=== PATIENT | female | born 1965 | race Caucasian/White ===

== ENCOUNTER 2023-09-10 05:23 | Emergency (ER) | payer MEDICAID, OTHER ==
[~2023-09-10] VITALS: Ht 144.8 cm; Wt 76.4 kg
[2023-09-10] MEDS ORDERED: ACETAMINOPHEN 500 MG TAB PO ONE (11:30)
[2023-09-10 12:06] LABS: BASO % 0.3 % (0.0-1.0); EOS # 0.1 10^3/uL (0.0-0.5); HEMATOCRIT 38.4 % (36.0-47.0); HEMOGLOBIN 12.8 g/dl (12.0-15.5); LYMPH # 3.1 10^3/uL (1.5-5.0); LYMPH % 44.2 % (24.0-44.0); MEAN CORPUSCULAR HGB CONC 33.3 g/dl (32.0-36.5); MEAN CORPUSCULAR VOLUME 89.9 fl (80.0-96.0); MONO # 0.5 10^3/uL (0.0-0.8); MONO % 6.8 % (2.0-8.0); NEUTROPHILS # 3.3 10^3/uL (1.5-8.5); NEUTROPHILS % 47.4 % (36.0-66.0); PLATELET COUNT, AUTOMATED 204 10^3/uL (150-450); RED BLOOD COUNT 4.27 10^6/uL (4.00-5.40)
[2023-09-10 12:34] LABS: LIPASE 35 U/L (12-53)
[2023-09-10 12:37] LABS: ALBUMIN 4.1 G/DL (3.2-5.2); ALKALINE PHOSPHATASE 95 U/L (46-116); ALT/SGPT 22 U/L (7.0-40); AST/SGOT 16 U/L (<34); BILIRUBIN,DIRECT 0.1 MG/DL (<0.4); BILIRUBIN,TOTAL 0.5 MG/DL (0.3-1.2); BLOOD UREA NITROGEN 10 MG/DL (9-23); CALCIUM LEVEL 9.8 MG/DL (8.5-10.1); CARBON DIOXIDE LEVEL 32 MMOL/L (20-31); CHLORIDE LEVEL 109 MMOL/L (98-107); CREATININE FOR GFR 0.52 MG/DL (0.55-1.30); GLOMERULAR FILTRATION RATE > 60.0 (>51); GLUCOSE, FASTING 95 MG/DL (60-100); POTASSIUM SERUM 3.4 MMOL/L (3.5-5.1); SODIUM LEVEL 144 MMOL/L (136-145); TOTAL PROTEIN 7.3 G/DL (5.7-8.2)
[2023-09-10] MEDS ORDERED: TRAM50TA2 PO (13:00)
[2023-09-10 13:12] VITALS: BP 149/90; TEMP 97.5; O2SAT 97
== END 2023-09-10 13:14 | disposition home or self-care (01) ==
LOC: M ED 11:08
DX: R20.2 Paresthesia of skin (principal); Z87.81 Personal history of (healed) traumatic fracture; Z88.1 Allergy status to other antibiotic agents; Z88.8 Allergy status to other drugs, medicaments and biological substances; Z91.018 Allergy to other foods

== ENCOUNTER → 2023-09-30 | Outpatient (CLI) | payer OTHER ==
[~2023-09-30] MED LIST: TRAM50TA2 PO
== END ==
LOC: M WHC 12:43
PROVIDERS: ATTEND Specialist
DX: R92.8 Other abnormal and inconclusive findings on diagnostic imaging of breast (principal)

== ENCOUNTER 2023-12-03 11:48 | Emergency (ER) | payer OTHER ==
[~2023-12-03] VITALS: Ht 144.8 cm; Wt 75.5 kg
[2023-12-03] MEDS ORDERED: HYDR-3363 (11:55)
[2023-12-03] MEDS ORDERED: TRAZ-252 (11:55)
[2023-12-03] MEDS ORDERED: METH-1164 (11:55)
[2023-12-03] MEDS ORDERED: ZOLO100T (11:55)
[2023-12-03] MEDS ORDERED: PHEN-239 (11:55)
[2023-12-03] MEDS ORDERED: ROSU10TA6 (11:55)
[2023-12-03 13:38] LABS: BASO % 0.4 % (0.0-1.0); EOS % 0.4 % (0.0-3.0); HEMATOCRIT 39.8 % (36.0-47.0); HEMOGLOBIN 13.3 g/dl (12.0-15.5); LYMPH # 2.6 10^3/uL (1.5-5.0); LYMPH % 36.8 % (24.0-44.0); MEAN CORPUSCULAR HEMOGLOBIN 30.6 pg (27.0-33.0); MEAN CORPUSCULAR HGB CONC 33.4 g/dl (32.0-36.5); MEAN CORPUSCULAR VOLUME 91.5 fl (80.0-96.0); MONO # 0.4 10^3/uL (0.0-0.8); MONO % 5.8 % (2.0-8.0); NEUTROPHILS # 3.9 10^3/uL (1.5-8.5); NEUTROPHILS % 56.3 % (36.0-66.0); PLATELET COUNT, AUTOMATED 207 10^3/uL (150-450); RED BLOOD COUNT 4.35 10^6/uL (4.00-5.40)
[2023-12-03 14:08] LABS: LIPASE 35 U/L (12-53)
[2023-12-03 14:10] LABS: ALBUMIN 3.9 G/DL (3.2-5.2); ALKALINE PHOSPHATASE 113 U/L (46-116); ALT/SGPT 25 U/L (7.0-40); AST/SGOT 18 U/L (<34); BILIRUBIN,DIRECT < 0.1 MG/DL (<0.4); BILIRUBIN,TOTAL 0.2 MG/DL (0.3-1.2); BLOOD UREA NITROGEN 14 MG/DL (9-23); CALCIUM LEVEL 9.7 MG/DL (8.5-10.1); CARBON DIOXIDE LEVEL 30 MMOL/L (20-31); CHLORIDE LEVEL 108 MMOL/L (98-107); CREATININE FOR GFR 0.55 MG/DL (0.55-1.30); GLOMERULAR FILTRATION RATE > 60.0 (>51); GLUCOSE, FASTING 114 MG/DL (60-100); POTASSIUM SERUM 3.9 MMOL/L (3.5-5.1); SODIUM LEVEL 143 MMOL/L (136-145); TOTAL PROTEIN 7.4 G/DL (5.7-8.2)
[2023-12-03] MEDS ORDERED: ISOVUE-370 76% 100ML VIAL As Ordered ONE (14:32)
[2023-12-03 15:53] VITALS: BP 134/70; TEMP 97.8; O2SAT 97
== END 2023-12-03 15:54 | disposition home or self-care (01) ==
LOC: M ED 11:48
DX: K59.00 Constipation, unspecified (principal); R14.0 Abdominal distension (gaseous); K80.20 Calculus of gallbladder without cholecystitis without obstruction; N20.0 Calculus of kidney; F10.10 Alcohol abuse, uncomplicated; Z88.8 Allergy status to other drugs, medicaments and biological substances; Z91.013 Allergy to seafood; Z79.899 Other long term (current) drug therapy
CPT/HCPCS: 36415; 74177; 80048; 80076; 83690; 85025; 99284; Q9967

== ENCOUNTER 2023-12-17 11:48 | Day surgery (SDC) | payer OTHER ==
[~2023-12-17] VITALS: Ht 144.8 cm; Wt 71.8 kg
[2023-12-17] MEDS: NS 1,000 ML IV ONE (06:00)
[~2023-12-17 11:48] MED LIST changes: +HYDR-3363; +METH-1164; +PHEN-239; +ROSU10TA6; +TRAZ-252; +ZOLO100T
[2023-12-17] MEDS ORDERED: LIDOCAINE 2% 100MG/5ML SDV (FOR ANES.) As Ordered ONE (12:58)
[2023-12-17] MEDS ORDERED: fentaNYL 100 MCG/2 ML INJECTION As Ordered ONE (12:58)
[2023-12-17] MEDS ORDERED: propofoL 200 MG/20 ML VIAL As Ordered ONE (12:58)
[2023-12-17 13:17] VITALS: TEMP 98
[2023-12-17 13:43] VITALS: BP 116/76; O2SAT 97
== END 2023-12-17 13:56 | disposition home or self-care (01) ==
LOC: M OPP 11:48
PROVIDERS: ATTEND Surgery
DX: R10.84 Generalized abdominal pain (principal); K29.70 Gastritis, unspecified, without bleeding; K64.1 Second degree hemorrhoids; R10.13 Epigastric pain; E78.00 Pure hypercholesterolemia, unspecified; Z79.899 Other long term (current) drug therapy; F32.A Depression, unspecified; Z88.8 Allergy status to other drugs, medicaments and biological substances
CPT/HCPCS: 43239; 45378; 88305; J3010